=== PATIENT | female | born 1950 ===

== ENCOUNTER 2022-06-30 07:15 | Inpatient (IN) | payer OTHER ==
[~2022-06-30] VITALS: Ht 175.3 cm; Wt 113.4 kg
[2022-06-30] MEDS ORDERED: PLAVIX75 MG PO (08:27)
[2022-06-30] MEDS ORDERED: METFORMIN HCL1000 M2 PO (08:27)
[2022-06-30] MEDS ORDERED: LIPITOR40 MG PO (08:27)
[2022-06-30] MEDS ORDERED: TOPROL XL25 M1 PO (08:27)
[2022-06-30] MEDS ORDERED: TRULICITY0.75 MG/0. (08:28)
[2022-07-06] MEDS ORDERED: METOPROLOL TART50 MG (10:40)
[2022-07-06] MEDS ORDERED: IRBESARTAN150 MG (10:40)
[2022-07-06] MEDS ORDERED: ZANAFLEX2 MG (10:41)
[2022-07-06] MEDS ORDERED: GLIPIZIDE ER2.5 MG (10:41)
[2022-07-06] MEDS ORDERED: MECLIZINE HCL25 MG (10:41)
[2022-07-06] MEDS ORDERED: PIOGLITAZONE HC30 MG (10:41)
== END 2022-07-07 16:15 | DRG 470 ==
LOC: SURH 07-05 06:18 → O/R 07-05 06:18 → SURG 07-05 07:15 → SURH 07-05 13:15
PROVIDERS: ADMIT Orthopaedic Surgery; ATTEND Orthopaedic Surgery
PROC: 0SRC0JZ Replacement of Right Knee Joint with Synthetic Substitute, Open Approach (ICD-10-PCS; principal; 2022-07-05 10:15)
DX: M17.11 Unilateral primary osteoarthritis, right knee (principal); D62 Acute posthemorrhagic anemia; M85.661 Other cyst of bone, right lower leg; R26.89 Other abnormalities of gait and mobility; E11.9 Type 2 diabetes mellitus without complications; I10 Essential (primary) hypertension; Z79.84 Long term (current) use of oral hypoglycemic drugs